=== PATIENT | male | born 1945 | race Caucasian/White ===

== ENCOUNTER 2017-04-24 13:38 | Emergency (ER) | payer MEDICARE, BC ==
[~2017-04-24] VITALS: Ht 180.3 cm; Wt 75.0 kg
[2017-04-24 13:39] VITALS: BP 169/79; PULSE 105; RESP 20; TEMP 99.5; O2SAT 97
--- NOTE | 2017-04-24 14:09 | PD ---
Physical Exam Time Seen by Provider: 14:09 Narrative 71 y/o male with R arm pain after a trip/fall 4 days ago in [place]. An xray was performed revealing proximal humeral fracture but this was not treated in [place] and he has been self-splinting with his shirt fashioned into a sling. Vital signs reviewed. Seen at triage desk. Awaiting bed placement. Data Data Last Documented VS Vital Signs Date Time Temp Pulse Resp B/P Pulse Ox O2 Delivery O2 Flow Rate FiO2 04/24/17 13:39 99.5 105 20 169/[address] [facility] Medical Record Reviewed: Yes Supervised Visit with IHSAN: Joey Gonzalez Apr 24, 2017 14:09
--- NOTE | 2017-04-24 16:33 | PD ---
HPI Chief Complaint: Injury Time Seen by Provider: 16:12 Travel History International Travel<30 days: No Contact w/Intl Traveler<30days: [place] Traveled to: [place] Traveled to known affect area: No History of Present Illness HPI 71-year-old male complains of right shoulder and right upper arm pain. Patient fell 4 days ago outside the country. Patient had x-ray done in [facility] and was put on sling and swath and advised to follow-up with orthopedics in the state. Patient states that he has persistent sharp pain localized to right shoulder right upper arm. Patient denies any pain radiation. Patient states that the pain is worse with movement of the right arm. Patient was not given prescription for pain medication. Patient denies any other injury. On a scale of 1-10 the pain is a 9. Patient has history of hypertension, diabetes and CAD. Patient status post stent placement. Patient on aspirin 81 mg daily. PFSH Past Medical History Cardiovascular Problems: Yes (CARDIOVASCULAR STENT) Diabetes: Yes Diminished Hearing: No Tetanus Vaccination: Unknown Influenza Vaccination: No Social History Alcohol Use: No Tobacco Use: No Substance Use: No Allergies-Medications (Allergen,Severity, Reaction): Coded Allergies: Penicillin (Verified Allergy, Unknown, UNKNOWN- REACTION A CHILD, ) Review of Systems General / Constitutional: No: Fever Eyes: No: Visual changes HENT: No: Headaches Cardiovascular: No: Chest Pain or Discomfort Respiratory: No: Shortness of Breath Gastrointestinal: No: Abdominal Pain Genitourinary: No: Dysuria Musculoskeletal: Positive: Pain Skin: No Rash Neurologic: No: Weakness Psychiatric: No: Depression Endocrine: No: Polydipsia Hematologic/Lymphatic: No: Easy Bruising Physical Exam Narrative GENERAL: Well-nourished, well-developed patient. SKIN: Focused skin assessment warm/dry. HEAD: Normocephalic. EYES: No scleral icterus. No injection or drainage. NECK: Supple, trachea midline. No JVD or lymphadenopathy. CARDIOVASCULAR: Regular rate and rhythm without murmurs, gallops, or rubs. RESPIRATORY: Breath sounds equal bilaterally. No accessory muscle use. GASTROINTESTINAL: Abdomen soft, non-tender, nondistended. MUSCULOSKELETAL: No cyanosis, or edema. BACK: Nontender without obvious deformity. No CVA tenderness. Patient has ecchymosis swelling tenderness right humerus and right shoulder. Full range of motion of the fingers. Sensory motor function distally intact. Data Data Last Documented VS Vital Signs Date Time Temp Pulse Resp B/P Pulse Ox O2 Delivery O2 Flow Rate FiO2 04/24/17 16:14 99 Room Air 04/24/17 13:39 99.5 105 20 169/79 Orders Support Splint (04/24/17 14:15) Sling Cradle Arm (04/24/17 ) Sling Cradle Arm (04/24/17 ) Shoulder, Limited(2vws) (04/24/17 ) Splint Or Brace Apply/Monitor (04/24/17 16:40) [facility] [place] Medical Decision Making Medical Screen Exam Complete: Yes Emergency Medical Condition: Yes Differential Diagnosis Differential diagnosis including fracture right humerus. Narrative Course 71-year-old male with fracture proximal right humerus. I spoke with Dr. Salomon , orthopedist extraction operator. Advised sling and swath and follow-up with him in the office. Diagnosis Primary Impression: Fracture of right humerus Qualified Code: S42.351A - Closed displaced comminuted fracture of shaft of right humerus, initial encounter Patient Instructions: General Instructions Additional Instructions: Take medications as directed for pain. Sling and swath. Follow-up with an orthopedist. Med/Other Pt SpecificInfo: Prescription(s) given Scripts Hydrocodone-Acetaminophen ([place])5-325 mg Tab1 Tab PO Q6H PRN (PAIN) #30 TAB Prov:Camacho Ramos MD 04/24/17 Disposition: 01 DISCHARGE HOME Condition: Stable Camacho Ramos MD Apr 24, 2017 16:33
--- NOTE | 2017-04-24 16:40 | RADRPT ---
EXAM DATE/TIME: 04/24/2017 15:35 [place] COMPARISON: No previous studies available for comparison. INDICATIONS : Patient fell Friday night on right arm. MEDICAL HISTORY : None. SURGICAL HISTORY : None. ENCOUNTER: Initial ACUITY: 1 day PAIN SCORE: 7/10 LOCATION: Right Shoulder. FINDINGS: 2 images of the right shoulder reveal an acute comminuted fracture involving the proximal humeral met aphysis. No extension to the articular surface of the humeral head. Mild displacement of one fracture fragment of approximately 8 mm. No angulation. Clavicle and scapula are intact. CONCLUSION: Acute comminuted fracture of the humeral metaphysis. Baljinder Tucker Jr., MD on April 24, 2017 at 16:37 Board Certified Radiologist. This report was verified electronically.
[2017-04-24] MEDS ORDERED: NORC5TAB PO (16:41)
== END 2017-04-24 17:02 | disposition home or self-care (01) ==
LOC: NEPD 13:38
DX: S42.301A Unspecified fracture of shaft of humerus, right arm, initial encounter for closed fracture (principal); E11.9 Type 2 diabetes mellitus without complications; I10 Essential (primary) hypertension; I25.10 Atherosclerotic heart disease of native coronary artery without angina pectoris; Z79.82 Long term (current) use of aspirin; W19.XXXA Unspecified fall, initial encounter
CPT/HCPCS: 29240; 73030